=== PATIENT | male | born 1960 | race Caucasian/White ===

== ENCOUNTER 2016-08-05 08:07 | Day surgery (SDC) | payer OTHER ==
[2016-08-05 08:33] VITALS: BMI 29.0
[2016-08-05 08:49] VITALS: RESP 14; O2SAT 99
[2016-08-05] MEDS ORDERED: Propofol 10 mg/ml Inj (20 ML) ONE (09:16)
[2016-08-05 10:44] VITALS: BP 126/73; PULSE 69; TEMP 97
== END 2016-08-05 11:15 | disposition home or self-care (01) ==
LOC: C.ENDO 08:07
PROVIDERS: ATTEND Internal Medicine Gastroenterology
DX: K64.8 Other hemorrhoids (principal)
CPT/HCPCS: 45378; J2704